=== PATIENT | male | born 1975 | race American Indian/Alaskan Native ===

== ENCOUNTER 2021-03-06 14:40 | Emergency (ER) | payer BC, OTHER ==
[2021-03-06 15:57] LABS: Bilirubin,Urine NEG (Negative); Blood,Urine NEG (Negative); Color,Urine Yellow (Yellow); Mucus,Urine 2+ /HPF
--- NOTE | 2021-03-06 16:09 | Event Note ---
ED Screening Note ED Screening Note: hx of nephrolithiasis he has never had to have surgical removal or lithotripsy states he has been having right sided abd pain +nausea +back pain no vomiting or diarrhea no hematuria no dysuria PMHx none no allergies to meds This initial assessment/diagnostic orders/clinical plan/treatment(s) is/are subject to change based on patients health status, clinical progression and re- assessment by fellow clinical providers in the ED. Further treatment and workup at subsequent clinical providers discretion. Patient/guardian urged not to elope from the ED as their condition may be serious if not clinically assessed and managed. Initial orders include: labs, CT
[2021-03-06 16:45] LABS: Basophils # (Auto) 0.1 K/mm3 (0.0-0.1); Basophils % (Auto) 0.7 % (0.0-1.8); Eosinophils % (Auto) 0.5 % (0.0-4.3); Hematocrit 41.6 % (35.5-45.6); Lymphocytes # (Auto) 2.8 K/mm3 (1.2-5.4); Lymphocytes % (Auto) 29.8 % (13.4-35.0); Mean Corpuscular HGB Conc 34 % (32-34); Mean Corpuscular Volume 92 fl (84-94); Monocytes # (Auto) 0.7 K/mm3 (0.0-0.8); Monocytes % (Auto) 7.7 % (0.0-7.3); Platelet Count 386 K/mm3 (140-440); Red Blood Count 4.53 M/mm3 (3.65-5.03)
[2021-03-06 17:01] LABS: Albumin 4.3 g/dL (3.9-5); Calcium 9.6 mg/dL (8.4-10.2)
[2021-03-06] MEDS ORDERED: dexAMETHasone 20 MG/5 ML VIAL IV ONE (17:48)
[2021-03-06] MEDS ORDERED: diphenhydrAMINE 50 MG/ML VIAL IV ONE ×2 (17:48)
--- NOTE | 2021-03-06 18:09 | Cat Scan Report ---
CT ABDOMEN AND PELVIS WITH CONTRAST INDICATION: right sided abd pain, nausea CONTRAST: 100 cc Omnipaque 300 IV COMPARISON: 04/02/[address] scans at this location are performed using CT dose reduction for ALARA by means of automated e xposure control. FINDINGS: Chronic changes are again noted in the lung bases with mild progression of fibrosis seen. N o definite pneumonic infiltrates are noted. No pulmonary nodules are seen. No pneumoperitoneum is noted. No lymphadenopathy is seen. Free fluid is noted. No evidence of bowel o bstruction is seen. Appendix appears within normal limits. No inflammatory changes are seen. Fatty infiltration of the liver is noted without significant enlargement or obvious mass. Spleen, adr enals, pancreas, bile ducts appear within normal limits. A small gallstone is seen but no gallbladder wall thickening is noted. Small bilateral renal cysts are noted. On the left no urinary obstructive changes are seen. On the ri ght there is mild obstructive change of the collecting system and 2 small calculi are seen in the low er pole calyces. The right ureter is mildly dilated to just below the pelvic brim level where a 6 mm calculus is located. Urinary bladder, prostate, and seminal vesicles show no significant abnormalitie s. IMPRESSION: 1. Mildly obstructing mid to distal right ureteral calculus 2. Minimal right nephrolithiasis 3. Cholelithiasis without acute change seen 4. Mild progression of chronic pulmonary changes Signer Name: Frankie Mccracken MD Signed: 03/06/2021 6:04 PM Workstation Name: [id number]
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
[2021-03-06] MEDS ORDERED: KETOROLAC 30 MG/1 ML INJ IV ONE (18:33)
[2021-03-06 19:52] VITALS: BP 151/96
== END 2021-03-06 19:45 | disposition home or self-care (01) ==
LOC: ED 14:40
DX: N20.0 Calculus of kidney (principal); Z91.14 Patient's other noncompliance with medication regimen; Z98.890 Other specified postprocedural states
CPT/HCPCS: 36415; 74177; 80053; 81001; 83690; 85025; 96374; 96375; 99284; J1100; J1200; J1885; Q9967; 96376